=== PATIENT | female | born 1945 | race Caucasian/White ===

== ENCOUNTER → 2017-04-17 15:52 | Outpatient (CLI) | payer MEDICARE ==
[2017-04-17 16:27] LABS: HEMOGLOBIN 11.6 g/dL (12-16); MCH 32.7 pg (26.0-34.0); MCHC 33.1 g/dL (31.0-37.0); MCV 98.6 fL (80.0-100.0); MEAN PLATELET VOLUME 9.6 fL (7.4-10.4); PLATELET COUNT 311 10x3/uL (130-400); RBC 3.55 10x6/uL (4.00-5.40); RDW 13.1 % (11.5-14.5); WBC 10.2 10x3/uL (4.8-10.8)
[2017-04-17 16:28] LABS: BASOPHILS 0.2 % (0-2); EOSINOPHILS 2.5 % (0-7); IMMATURE GRANULOCYTES 0.3 % (0-5); LYMPHOCYTES 14.9 % (15-50); MONOCYTES 9.4 % (2-11); NEUTROPHILS 72.7 % (40-80)
[2017-04-17 16:39] LABS: ANION GAP 15.6 mmol/L (8-16); CARBON DIOXIDE 24.9 mmol/L (21.0-32.0); CREATININE - SERUM 0.9 mg/dL (0.6-1.3); POTASSIUM - SERUM 3.5 mmol/L (3.5-5.1); VANCOMYCIN - TROUGH 30.6 ug/mL (10.0-20.0)
== END | disposition home or self-care (01) ==
LOC: D.LABREF 15:52
PROVIDERS: Internal Medicine
DX: G03.9 Meningitis, unspecified (principal); G44.009 Cluster headache syndrome, unspecified, not intractable; R41.82 Altered mental status, unspecified

== ENCOUNTER → 2017-04-22 08:43 | Outpatient (CLI) | payer MEDICARE ==
[2017-04-22 08:59] LABS: BASOPHILS 0.6 % (0-2); EOSINOPHILS 5.2 % (0-7); HEMATOCRIT 36.7 % (36.0-48.0); HEMOGLOBIN 12.1 g/dL (12-16); LYMPHOCYTES 29.4 % (15-50); MCH 32.7 pg (26.0-34.0); MCV 99.2 fL (80.0-100.0); MEAN PLATELET VOLUME 9.6 fL (7.4-10.4); MONOCYTES 11.1 % (2-11); NEUTROPHILS 53.7 % (40-80); PLATELET COUNT 339 10x3/uL (130-400); RDW 12.9 % (11.5-14.5); WBC 5.4 10x3/uL (4.8-10.8)
[2017-04-22 09:14] LABS: CALC OSMOLALITY 281 mosm/kg (275-300); CALCIUM 9.3 mg/dL (8.5-10.1); CHLORIDE - SERUM 104 mmol/L (98-107); CREATININE - SERUM 0.8 mg/dL (0.6-1.3); GLUCOSE 99 mg/dL (74-106); POTASSIUM - SERUM 4.4 mmol/L (3.5-5.1); SODIUM 141 mmol/L (136-145); UREA NITROGEN 14 mg/dL (7-18); VANCOMYCIN - TROUGH 18.9 ug/mL (10.0-20.0); eGFR NON AFRICAN AMERICAN 75 mL/min (90-120)
== END | disposition home or self-care (01) ==
LOC: D.LABREF 08:43
PROVIDERS: Internal Medicine
DX: G03.9 Meningitis, unspecified (principal)